=== PATIENT | male | born 1960 | race Caucasian/White ===

== ENCOUNTER 2021-02-24 14:33 | Outpatient (REF) | payer OTHER, SELFPAY | END 2021-02-24 14:34 | disposition home or self-care (01) | LOC: HO.LNP 14:33 | PROVIDERS: Visit Provider Otolaryngology | DX: R78.81 Bacteremia (principal); B36.8 Other specified superficial mycoses | CPT/HCPCS: 87071; 87077; 87102; 87186; 87205 ==